=== PATIENT | male | born 1955 | race Caucasian/White ===

== ENCOUNTER → 2018-10-01 | Outpatient (CLI) | payer OTHER ==
--- NOTE | 2018-10-01 17:10 | RADRPT ---
PROCEDURE: XR Right hip and pelvis. CLINICAL INDICATION: Right hip pain and pelvic pain. TECHNIQUE: 3 views. Weight bearing. Frontal pelvis. Frontal and lateral right hip. COMPARISON: None. FINDINGS: There is no fracture or dislocation. The soft tissues are normal. Articular surfaces are intact. There is no lytic or blastic lesion. Surgical clips are present in the left inguinal region. IMPRESSION: 1. Unremarkable images of the right hip. 2. Surgical clips in the left inguinal region. 3. Otherwise unremarkable frontal view of the pelvis. RPTAT: QQ .Amado Rodríguez MD, MD Date Time Electronically viewed and signed by .Amado Rodríguez MD, on 10/01/2018 17:09 .R/
== END | disposition home or self-care (01) ==
LOC: HKI 13:55
PROVIDERS: ATTEND Orthopaedic Surgery Adult Reconstructive Orthopaedic Surgery
DX: M25.551 Pain in right hip (principal); R10.2 Pelvic and perineal pain
CPT/HCPCS: 73502; G0463